=== PATIENT | female | born 1940 | race Caucasian/White ===

== ENCOUNTER 2016-04-04 08:33 | Emergency (ER) | payer MEDICARE, BC ==
[2016-04-04 08:47] VITALS: BP 153/70
--- NOTE | 2016-04-04 09:50 | UC ---
Respiratory Complaint HPI - HPI Summary HPI Summary: 1 WEEK OF SINUS PRESSURE/CONGESTION, TEETH ACHE, EAR PRESSURE, PND, CHILLS. - History of Current Complaint Chief Complaint: UCGeneralIllness Stated Complaint: SINUS CONGESTION Time Seen by Provider: 04/04/16 09:41 Hx Obtained From: Patient Onset/Duration: Gradual Onset, Lasting Days, Still Present Timing: Constant Severity Initially: Moderate Severity Currently: Moderate Pain Intensity: 5 Pain Scale Used: 0-10 Numeric Aggravating Factors: Nothing Alleviating Factors: Nothing Associated Signs And Symptoms: Positive: URI, Nasal Congestion, Sinus Discomfort. Negative: Fever, Wheezing, Hoarseness - Allergies/Home Medications Allergies/Adverse Reactions: Allergies Allergy/AdvReac Type Severity Reaction Status Date / Time Atorvastatin [From Lipitor] Allergy Intermediate Muscle Ache Verified 02/14/13 06:56 Codeine Allergy Intermediate Nausea Verified 02/14/13 06:56 Home Medications: Home Medications Cranberry (Vaccinium Macrocarp [Cranberry] 04/04/16 [History] PMH/Surg Hx/FS Hx/Imm Hx Endocrine History Of: Reports: Dyslipidemia Denies: Diabetes, Thyroid Disease Cardiovascular History Of: Reports: Hypertension Denies: Cardiac Disorders Respiratory History Of: Denies: COPD, Asthma GI/ History Of: Denies: Ulcer Cancer History Of: Denies: Breast Cancer - Surgical History Surgical History: Yes Surgery Procedure, Year, and Place: 1997 - LAMINECTOMY- STRONG - Family History Known Family History: Positive: Hypertension - Social History Alcohol Use: Weekly Substance Use Type: None Smoking Status (MU): Never Smoked Tobacco Review of Systems Constitutional: Chills, Fatigue ENT: Ear Ache, Nasal Discharge Respiratory: Cough Cardiovascular: Negative Gastrointestinal: Negative Neurological: Headache All Other Systems Reviewed And Are Negative: Yes Physical Exam Triage Information Reviewed: Yes Appearance: Well-Appearing, No Pain Distress, Well-Nourished Vital Signs: Initial Vital Signs Temp 98.2 F 04/04/16 08:40 Pulse 87 04/04/16 08:40 Resp 16 04/04/16 08:40 BP 153/70 04/04/16 08:40 Pulse Ox 99 04/04/16 08:40 Vital Signs Reviewed: Yes Eyes: Positive: Conjunctiva Clear ENT: Positive: Hearing grossly normal, Pharynx normal, TMs normal Neck: Positive: Supple, Nontender, No Lymphadenopathy Respiratory Exam: Normal Cardiovascular Exam: Normal Abdomen Description: Positive: Soft Musculoskeletal: Positive: No Edema Neurological: Positive: Alert Psychological: Positive: Age Appropriate Behavior Skin: Negative: rashes UC Diagnostic Evaluation - Laboratory O2 Sat by Pulse Oximetry: 99 Respiratory Course/Dx - Differential Dx/Diagnosis Provider Diagnoses: ACUTE SINUSITIS Discharge - Discharge Plan Condition: Stable Disposition: HOME Prescriptions: Azithromyxin AMAURY (NF) [Z-Amaury (Zithromax) 250 mg tabs #6] 2 tab PO .TODAY, THEN 1 DAILY #6 tab Patient Education Materials: Sinusitis (ED) Referrals: Ale Palencia MD [Primary Care Provider] - If Needed Additional Instructions: YOUR SYMPTOMS MAY BE VIRAL IN ETIOLOGY. WILL COVER WITH AZITH GIVEN YOUR SYMPTOMS ARE WORSENING. SEEK FOLLOW-UP IF YOU ARE NOT IMPROVING EXPECTED.
== END 2016-04-04 10:05 | disposition home or self-care (01) ==
LOC: UCEAST 08:33
DX: J01.90 Acute sinusitis, unspecified (principal)
CPT/HCPCS: 99212; G0463